=== PATIENT | female | born 1980 | race American Indian/Alaskan Native ===

== ENCOUNTER 2017-10-01 03:05 | Emergency (ER) | payer SELFPAY ==
[2017-10-01 03:16] VITALS: BP 120/71
[2017-10-01 05:44] LABS: Bilirubin,Urine NEG (Negative); Blood,Urine NEG (Negative); Color,Urine Yellow (Yellow); Mucus,Urine FEW /HPF; Protein,Urine <15 mg/dL mg/dL (Negative); Urobilinogen,Urine < 2.0 mg/dL (<2.0)
[2017-10-01] MEDS ORDERED: D50W (25GM) Syringe IV ONE (06:51)
== END 2017-10-01 05:45 | disposition left against medical advice (07) ==
LOC: ED 03:05
DX: N89.8 Other specified noninflammatory disorders of vagina (principal); Z53.21 Procedure and treatment not carried out due to patient leaving prior to being seen by health care provider
CPT/HCPCS: 81001